=== PATIENT | male | born 1985 | race Caucasian/White ===

== ENCOUNTER 2016-12-06 12:44 | Emergency (ER) | payer SELFPAY ==
[~2016-12-06] VITALS: Ht 177.8 cm; Wt 109.1 kg
[2016-12-06 12:49] VITALS: PULSE 82; RESP 16; O2SAT 100
--- NOTE | 2016-12-06 13:00 | ED.REPORT ---
HPI-Abd Pain M Under 38 Date of Service Dec 06, 2016 ED Provider: History of Present Illness: pain in left abd, started on waking this am, vomiting, denies fever. thinks he had an episode about 10 years ago. no diarrhea. [facility] in [place] is primary care. 05/06 Nursing Notes Stated Complaint: LEFT SIDE ABDOMINAL PAIN Chief Complaint: Male Abdominal Pain Nursing Notes Reviewed: Yes Allergies: Coded Allergies: Sulfa (Sulfonamide Antibiotics) (Verified Allergy, Intermediate, hives, 09/12) No Active Prescriptions or Reported Meds General Time Seen by MD: 12:59 Chief Complaint Abdominal pain Hx Obtained From: Patient Sudden in Onset?: Yes Severity: Current: Pain level 9 out of 10 Past Medical History Past Medical History Denies: Asthma, Diabetes mellitus Past Surgical History denies Smoking History Never Smoker Social History Alcohol Use: Denies alcohol use Drug Use: Denies drug use Occupation lives with no work at this time 12/06/2016 Ambulatory Status Independent Review of Systems Basic Review of Systems Eyes: Vision NL, No discharge Skin: No bruising, No rash, No itch Psychiatric: Normal thought content Physical Exam Initial Vital Signs Vital Signs (First) Date Time Temp Pulse Resp B/P Pulse Ox O2 Delivery O2 Flow Rate FiO2 12/06/16 12:49 36.8 82 16 100 Room Air 12/06/16 14:49 156/77 Initial VS: Reviewed, Vital signs normal Head / Eyes: Atraumatic, Normocephalic, PERRL ENT: Mucous membranes moist, Conjunctiva normal, No scleral icterus Neck: Supple, Non-tender, Full range of motion Lymphatic: No lymphadenopathy Extremities: Vascular intact, Neuro intact, No swelling, No tenderness Skin: Warm, Dry, No cyanosis Neurologic: Alert, Oriented, Nonfocal Psychiatric: Mood/affect normal, Behavior normal, Normal thought content General/Constitutional: Awake, Alert, No acute distress, Well appearing, Well developed, Well hydrated, Well nourished, Cooperative, Not toxic appearing Respiratory / Chest: Atraumatic, Breath sounds NL, Breath sounds = bilat, No respiratory distress Cardiovascular: Heart rate NL, Regular rhythm, Heart sounds NL, No gallop, No murmurs left lower abd pain, no rebound, no guarding Flank / Spine / Paraspinal: Positive: Flank tender L Interpretation & Diagnostics Lab Results Interpretation Result Diagram: 12/06/16 1303 12/06/16 1303 Test 12/06/16 00:00 12/06/16 13:03 12/06/16 13:30 Urine Color Yellow (YELLOW) Urine Appearance Clear (CLEAR,HAZY) Urine pH 6.0 (5.0-8.0) Urine Specific [place] 1.030 (1.003-1.035) Urine Protein Tracemg/dL (NEG,TRACE) Urine Glucose (UA) Negativemg/dL (NEGATIVE) Urine Ketones Negativemg/dL (NEGATIVE) Urine Occult Blood Large (NEGATIVE) Urine Nitrite Negative (NEGATIVE) Urine Bilirubin Negative (NEGATIVE) Urine Urobilinogen Normalmg/dL (NORMAL) Urine Leukocyte Esterase Negative (NEGATIVE) Urine RBC >50/hpf (0-2) Urine WBC 0-5/hpf (0-5) Urine Epithelial Cells Occasional/hpf (NONE-MOD) Urine Crystals Oxalic acid crystals (NONE Urine Bacteria Few/hpf (NONE-FEW) Urine Hyaline Casts None/lpf (NONE) Urine Granular Casts None seen (NONE SEEN) Urine Waxy Casts None seen (NONE SEEN) Urine Red Blood Cell Casts None seen (NONE SEEN) Urine White Blood Cell Casts None seen (NONE SEEN) Urine Mucus Present (None Seen) Urine Trichomonas None seen (NONE SEEN) Urine Yeast None (NONE SEEN) Urinalysis Comment None Urine Culture Reflexed Not indicated White Blood Count 8.6th/mm3 (3.8-10.1) Red Blood Count 5.20mil/mm3 (4.40-5.80) Hemoglobin 14.8g/dL (13.8-17.2) Hematocrit 42.9% (41.0-50.0) Mean Corpuscular Volume 82.5fL (81-100) Mean Corpuscular Hemoglobin 28.5pg (27.0-35.0) Mean Corpuscular Hemoglobin Concent 34.5% (32.0-37.0) Red Cell Distribution Width 13.3% (12.3-15.4) Platelet Count 264bil/L (150-400) Neutrophils (%) (Auto) 58.4% (40-74) Lymphocytes (%) (Auto) 32.7% (14-46) Monocytes (%) (Auto) 5.6% (4-12) Eosinophils (%) (Auto) 2.6% (0-5) Basophils (%) (Auto) 0.2% (0-3) Sodium Level 141mEq/L (134-144) Potassium Level 4.3mEq/L (3.5-5.2) Chloride Level 104mEq/L (97-108) Carbon Dioxide Level 21mmol/L (18-29) Blood Urea Nitrogen 11mg/dL (6-20) Creatinine 0.94mg/dL (0.76-1.27) Estimat Glomerular Filtration Rate 98mL/min (>59) Glucose Level 125mg/dL (60-99) Calcium Level 9.1mg/dL (8.5-10.1) Total Bilirubin 0.5mg/dL (0.0-1.2) Aspartate Amino Transf (AST/SGOT) 28U/L (0-50) Alanine Aminotransferase (ALT/SGPT) 53U/L (0-44) Alkaline Phosphatase 51U/L (25-150) Total Protein 7.2g/dL (6.4-8.4) Albumin 4.7g/dL (3.4-5.0) Lab Results Interpretation: urine with lots of blood CT Abd / Pelvis Interpretation CHNIQUE: Noncontrast 5 mm thick sections acquired from the diaphragms to the symphysis. 5 mm thick coronal and sagittal reformats were then performed. For radiation dose reduction, the following was used: automated exposure control, adjustment of mA and/or kV according to patient size. COMPARISON: None. FINDINGS: Image quality: Excellent. Lung bases: Lung bases are clear. Heart size is normal. Urinary system: The right kidney demonstrates normal size. No hydronephrosis, nephrolithiasis, hydroureter, ureterolithiasis, or perinephric fat stranding. There is trace left perinephric fat stranding. There is mild left hydronephrosis. There is mild left is hydroureter and mild periureteral fat stranding. There is a questionable submillimeter calculus at the left ureterovesicular junction (series 2, image 86). No other ureteral calculi. The bladder is decompressed. No bladder calculi. Other solid organs: Liver and spleen are normal in size. Gallbladder is unremarkable. Pancreas is normal in contours. No adrenal nodules. Peritoneum and bowel: Unenhanced bowel loops demonstrate normal wall thickness and caliber. The appendix is thin walled and gas filled. No free fluid or air. Nodes and vessels: No retroperitoneal or mesenteric adenopathy by size criteria. Aorta and inferior vena cava are normal in caliber. Abdominal wall: No ventral hernias. Pelvis: No free pelvic fluid. No inguinal hernias or adenopathy. Bones: No suspicious bony lesions. No vertebral body compression fractures. There is a small bone island in the right femoral neck. IMPRESSION: 1. Mild left hydronephrosis, hydroureter, and periureteral fat stranding. A submillimeter calculus may be present at the left ureterovesicular junction. It is unclear whether this may be causing the partial obstruction of the left renal collecting system. Differential considerations include a previously passed stone. Of note, no calculi are visualized within the decompressed bladder. These findings were discussed with BLANCA Frederick at 2:08 PM on 12/06/16. Dictated by: Tere Jefferson M.D. on 12/06/2016 at 14:03 Approved by: Tere Jefferson M.D. on 12/06/2016 at 14:09 Re-Eval/Medical Decision Med Decision/Clinical Course 31 year old male presents with sudden onset of left sided abd pain this am with nausea. CT show possible recent passage of stone or very small one remaining. No sign of appendicitis. Patient Discharge & Departure Primary Impression: Left flank pain Disposition: Home Additional Instructions: The CT shows that you have mild left hydronephrosis and mild enlarged hydroureter. This indicates you may have passed a kidney stone. Continue to push fluids. The CT indicates a very small stone may still be present. The size is submillimeter. This can be passed without intervention. Use ketorolac 10 mg up to 4 times a day to help with pain. Also percocet 10/325 up to 3 times a day for severe unrelenting pain. A small amount of ativan is being provided also , 1 up to 2 times a day for 3 days. Use zofran 4 mg up to 3 times a day as needed for nausea. Follow with primary care in [place]. EDSupervising Provider for APC: Tito Carrillo MD, Sue ARNP Dec 06, 2016 13:00
[2016-12-06] MEDS ORDERED: Ondansetron 2 mg/mL 2 mL Inj IVPUSH ONE (13:10)
[2016-12-06] MEDS ORDERED: 0.9% Sodium Chloride 1,000 ML IV ONE (13:10)
[2016-12-06 13:19] LABS: BASOPHILS % (AUTO) 0.2 % (0-3); EOSINOPHILS % (AUTO) 2.6 % (0-5); MONOCYTES % (AUTO) 5.6 % (4-12); Mean Corpuscular Hemoglobin 28.5 pg (27.0-35.0); Mean Corpuscular Volume 82.5 fL (81-100); NEUTROPHILS % (AUTO) 58.4 % (40-74); Platelet Count 264 bil/L (150-400)
[2016-12-06] MEDS ORDERED: HYDROmorphone 0.5 mg/0.5 mL iSecure Syringe IVPUSH ONE (13:40)
--- NOTE | 2016-12-06 14:10 | DRSVH ---
PROCEDURE: CT KUB ([id number]) INDICATIONS: abd pain TECHNIQUE: Noncontrast 5 mm thick sections acquired from the diaphragms to the symphysis. 5 mm thick coronal an d sagittal reformats were then performed. For radiation dose reduction, the following was used: aut omated exposure control, adjustment of mA and/or kV according to patient size. COMPARISON: None. FINDINGS: Image quality: Excellent. Lung bases: Lung bases are clear. Heart size is normal. Urinary system: The right kidney demonstrates normal size. No hydronephrosis, nephrolithiasis, hydro ureter, ureterolithiasis, or perinephric fat stranding. There is trace left perinephric fat stranding. There is mild left hydronephrosis. There is mild left is hydroureter and mild periureteral fat stranding. There is a questionable submillimeter calculus at the left ureterovesicular junction (series 2, image 86). No other ureteral calculi. The bladder is d ecompressed. No bladder calculi. Other solid organs: Liver and spleen are normal in size. Gallbladder is unremarkable. Pancreas is normal in contours. No adrenal nodules. Peritoneum and bowel: Unenhanced bowel loops demonstrate normal wall thickness and caliber. The raegan endix is thin walled and gas filled. No free fluid or air. Nodes and vessels: No retroperitoneal or mesenteric adenopathy by size criteria. Aorta and inferior vena cava are normal in caliber. Abdominal wall: No ventral hernias. Pelvis: No free pelvic fluid. No inguinal hernias or adenopathy. Bones: No suspicious bony lesions. No vertebral body compression fractures. There is a small bone i sland in the right femoral neck. IMPRESSION: 1. Mild left hydronephrosis, hydroureter, and periureteral fat stranding. A submillimeter calculus ma y be present at the left ureterovesicular junction. It is unclear whether this may be causing the par tial obstruction of the left renal collecting system. Differential considerations include a previousl y passed stone. Of note, no calculi are visualized within the decompressed bladder. These findings were discussed with BLANCA Frederick at 2:08 PM on 12/06/16. Dictated by: Tere Jefferson M.D. on 12/06/2016 at 14:03 Approved by: Tere Jefferson M.D. on 12/06/2016 at 14:09
[2016-12-06 14:43] LABS: APPEARANCE,URINE CLEAR (CLEAR,HAZY); COLOR,URINE YELLOW (YELLOW)
[2016-12-06 14:44] LABS: OCCULT BLOOD,URINE LARGE (NEGATIVE); UROBILINOGEN,URINE NORMAL (NORMAL)
[2016-12-06 14:49] VITALS: BP 156/77; PULSE 70; RESP 15; O2SAT 98
[2016-12-06] MEDS ORDERED: Acetaminophen IV 1,000 MG in IV Premix 1 EACH IV ONE (15:00)
[2016-12-06] MEDS ORDERED: HYDROmorphone 1 mg/mL Inj IVPUSH ONE ×2 (15:00→15:15)
[2016-12-06] MEDS ORDERED: oxyCODONE-Acetamin 10-325 mg Tablet PO ONE (16:20)
[2016-12-06 17:07] VITALS: BP 144/74; PULSE 66; RESP 16; O2SAT 99
== END 2016-12-06 17:08 | disposition home or self-care (01) ==
LOC: SED 12:44
DX: R10.32 Left lower quadrant pain (principal); Z88.2 Allergy status to sulfonamides
CPT/HCPCS: 36415; 74176; 80053; 81000; 85025; 87491; 87591; 96361; 96374; 96375; 96376; 99285; J0131; J1170; J1885; J2060; J2405; J7030